=== PATIENT | male | born 1930 | race Caucasian/White ===

== ENCOUNTER → 2016-11-12 | Outpatient (CLI) | payer MEDICARE, OTHER ==
--- NOTE | 2016-11-12 09:31 | CT ---
EXAM DESCRIPTION: CT CERVICAL SPINE WITHOUT IV CONTRAST CLINICAL HISTORY: NECK PAIN COMPARISON: None available. TECHNIQUE: Axial noncontast CT of the cervical spine with coronal and sagittal reformats. CT scan was done according to ALARA (As Low as Reasonably Achievable). FINDINGS: Cervical vertebral bodies show no obvious compression deformities. There is curvature of the patient's head towards the left which may be partly positional. Normal lumbar lordosis is seen. Visualized skullbase shows carotid artery calcifications. Moderate calcifications of the coronary arteries in the neck are seen. No pathologic lymphadenopathy. Left subclavian dual lead transvenous cardiac pacemaker leads are partly visualized. 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 Moderate degenerative changes between the anterior arch of C1 and the odontoid are seen with mild degenerative changes between C1 and the occipital condyles. Soft tissue thickening posterior to the odontoid is seen without significant spinal canal stenosis or bone erosive changes. C2-3 Bridging marginal endplate osteophyte anteriorly is seen. Mild diffuse disc space narrowing. Mild bilateral facet hypertrophic and degenerative changes are seen. Mild ventral ridging disc osteophyte complex. Mild spinal canal stenosis with moderate left and mild right foraminal encroachment. C3-4 Mild diffuse disc space narrowing. There is moderate central mostly disc protrusion measuring at least 4 mm AP x 9 mm transverse at the base contributing to moderate spinal canal stenosis. The spinal canal measures 4.5 mm AP centrally. Moderate bilateral facet hypertrophic and degenerative changes contribute to moderate to severe bilateral foraminal encroachment. C4-5 Mild diffuse disc space narrowing is seen with severe left greater than right facet hypertrophic and degenerative changes. There is right paracentral disc protrusion extending 3 mm beyond the endplate margin and measuring 8 mm transverse at the base indenting the ventral aspect of the thecal sac likely compressing the spinal cord. The spinal canal measures 4.5 mm AP centrally consistent with at least moderate spinal canal stenosis and likely some degree of cord compression. There is severe bilateral foraminal encroachment. C5-6 Severe disc space narrowing is seen. Moderate broad-based ventral ridging disc osteophyte complex contributes to at least mild spinal canal stenosis. The thecal sac measures 7 mm AP centrally. Uncovertebral joint hypertrophy with moderate left and mild right facet hypertrophy results in severe left greater than right foraminal encroachment. Mild anterior lipping marginal endplate osteophytes are seen. C6-7 Partial fusion of the vertebral bodies across the disc space is seen. There is severe disc space narrowing. There is moderate broad-based ventral ridging disc osteophyte complex contributing to at least moderate spinal canal stenosis. The thecal sac measures 6 mm AP centrally. Uncovertebral joint hypertrophy results in severe right and moderate left foraminal encroachment. C7-T1 Mild diffuse disc space narrowing is seen. Moderate left and mild right facet hypertrophic and degenerative changes are seen. Ventral ridging disc osteophyte complex is noted. There is at least mild central canal stenosis with moderate to severe bilateral foraminal encroachment. T1-T3: Facet hypertrophic and degenerative changes with mild disc disease contributes to mainly foraminal encroachment at these levels. 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 There is at least moderate spinal canal stenosis with likely some degree of cord compression at C3-4 and C4-5. There is mild spinal canal stenosis at multiple other levels. Multilevel moderate to severe foraminal encroachment of the cervical spine is seen as described level by level above. Severe atherosclerotic disease of the carotid arteries is noted. Electronically signed by: Damien Velez MD 11/12/2016 09:29
--- NOTE | 2016-11-12 10:03 | CT ---
EXAM DESCRIPTION: CT LUMBAR SPINE WITHOUT IV CONTRAST CLINICAL HISTORY: LUMBAR PAIN COMPARISON: None. TECHNIQUE: Non contrast transaxial CT images of the lumbar spine are obtained with coronal and sagittal reconstructed images. CT scan was done according to ALARA (As Low as Reasonably Achievable). GENERAL Vertebral body heights are maintained. Moderate levocurvature of the mid lumbar spine. Severe disc space narrowing with vacuum disc is seen from L1 through S1. Significant sclerotic changes involving the endplates around the disc spaces at L1-2 and L3 through L5 are seen. Hypertrophic anterior marginal endplate osteophytes are seen at multiple levels with anterior disc bulging. The visualized intra-abdominal and retroperitoneal structures show moderate calcific atherosclerotic disease. The infrarenal abdominal aorta measures 2.9 by 2.9 cm. L1-2 Left paracentral to far lateral disc bulging is seen with mild bilateral facet hypertrophic and degenerative changes contributing to mild spinal canal stenosis with moderate left greater than right foraminal encroachment. L2-3 Mild broad-based disc bulge. Mild facet hypertrophic and degenerative change with ligamentum flavum thickening. There is at least mild spinal canal stenosis and mild right greater than left foraminal encroachment. L3-4 Posterior circumferential ridging disc osteophyte complex is seen with moderate bilateral facet hypertrophic and degenerative changes including ligamentum flavum thickening. The thecal sac measures approximately 5.5 mm AP centrally consistent with moderate spinal canal stenosis. There is moderate left and severe right foraminal encroachment. L4-5 Moderate right greater than left facet hypertrophic and degenerative changes are seen. Disc osteophytic ridging into the right neural foramen is seen. There is severe bilateral foraminal encroachment. There is at least mild central spinal canal stenosis. L5-S1 Chronic appearing bilateral L5 pars defects are seen with 8 mm anterior displacement of L5 on S1. Moderate bilateral facet hypertrophic and degenerative changes are seen. No significant spinal canal stenosis. There is severe left greater than right foraminal encroachment. 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 There is multifactorial moderate spinal canal stenosis at L3-4 with multilevel mild spinal canal stenosis. Multilevel foraminal encroachment of the lumbar spine is seen most significant from L3 through S1. Infrarenal abdominal aortic aneurysm measures 2.9 cm. Recommend followup imaging every 5 years. AAA Size: Follow-upRecommendation1: 2.6-2.9 cm Every 5 years2 3.0-3.4 cm Every 3 years 3.5-3.9 cm Every 1 year 4.0-4.4 cm Every 1 year, vascularconsultation recommended 4.5-5.4 cm Every 6 months,vascular consultation recommended >5.5cm Vascularsurgery consultation recommended 1. J Vasc Surg. 2009Oct;50(4 Suppl):S2-49 2. For aortas with maximum diameter of 2.6-2.9 cmmeeting the criteria for AAA (>50% of proximal normal segment) Electronically signed by: Damien Velez MD 11/12/2016 10:01
== END ==
LOC: CT 08:43
PROVIDERS: ATTEND Psychiatry & Neurology Neurology
DX: M51.16 Intervertebral disc disorders with radiculopathy, lumbar region (principal); M12.88 Other specific arthropathies, not elsewhere classified, other specified site; M48.06 Spinal stenosis, lumbar region; M50.01 Cervical disc disorder with myelopathy, high cervical region; M48.02 Spinal stenosis, cervical region; I65.23 Occlusion and stenosis of bilateral carotid arteries; I71.4 Abdominal aortic aneurysm, without rupture